=== PATIENT | female | born 1960 | race Caucasian/White ===

== ENCOUNTER → 2021-03-18 | Outpatient (CLI) | payer BC, OTHER ==
[2021-03-18 10:40] LABS: RED BLOOD COUNT 4.57 M/UL (4.00-5.10); WHITE BLOOD COUNT 4.2 K/UL (4.5-11.0)
[2021-03-18 10:54] LABS: BUN/CREATININE RATIO 12 (0-10)
== END ==
LOC: LAB 09:43
PROVIDERS: Nurse Practitioner
DX: I10 Essential (primary) hypertension (principal); K21.00 Gastro-esophageal reflux disease with esophagitis, without bleeding; E03.9 Hypothyroidism, unspecified; M54.5 Low back pain; N95.1 Menopausal and female climacteric states; E88.81 Metabolic syndrome and other insulin resistance; M13.0 Polyarthritis, unspecified; R76.0 Raised antibody titer; D51.9 Vitamin B12 deficiency anemia, unspecified; E55.9 Vitamin D deficiency, unspecified
CPT/HCPCS: 36415; 80053; 82607; 82746; 84439; 84443; 85027; 86140

== ENCOUNTER → 2021-08-26 | Outpatient (CLI) | payer BC ==
[2021-08-26 09:14] LABS: HEMOGLOBIN 14.3 gm/dl (12.3-15.3); RED BLOOD COUNT 4.49 M/UL (4.00-5.10); WHITE BLOOD COUNT 13.3 K/UL (4.5-11.0)
[2021-08-26 09:49] LABS: BUN/CREATININE RATIO 20 (0-10)
== END ==
LOC: LAB 08:53
PROVIDERS: Nurse Practitioner
DX: Z00.01 Encounter for general adult medical examination with abnormal findings (principal); Z13.220 Encounter for screening for lipoid disorders; Z13.31 Encounter for screening for depression; Z68.41 Body mass index [BMI] 40.0-44.9, adult; I10 Essential (primary) hypertension; R83.9 Unspecified abnormal finding in cerebrospinal fluid; R73.9 Hyperglycemia, unspecified; E03.9 Hypothyroidism, unspecified; E88.81 Metabolic syndrome and other insulin resistance; D51.9 Vitamin B12 deficiency anemia, unspecified; E55.9 Vitamin D deficiency, unspecified
CPT/HCPCS: 36415; 80053; 80061; 82607; 82746; 83036; 84439; 84443; 85027

== ENCOUNTER 2021-09-14 08:51 | Emergency (ER) | payer BC ==
[2021-09-14] MEDS ORDERED: Voltaren Gel 1 % TOP (10:39)
== END 2021-09-14 11:25 | disposition home or self-care (01) ==
LOC: ER1 08:51
DX: M25.562 Pain in left knee (principal); I10 Essential (primary) hypertension; J45.909 Unspecified asthma, uncomplicated; Z95.0 Presence of cardiac pacemaker; Z90.49 Acquired absence of other specified parts of digestive tract; Z90.710 Acquired absence of both cervix and uterus
CPT/HCPCS: 93971; 99283

== ENCOUNTER → 2021-12-29 | Outpatient (CLI) | payer BC ==
[~2021-12-29] MED LIST: Voltaren Gel 1 % TOP
== END ==
LOC: MAMO 07:31
DX: Z12.31 Encounter for screening mammogram for malignant neoplasm of breast (principal)
CPT/HCPCS: 77063; 77067

== ENCOUNTER → 2022-03-01 | Outpatient (CLI) | payer BC ==
[2022-03-01 12:39] LABS: HEMOGLOBIN 13.6 gm/dl (12.3-15.3); RED BLOOD COUNT 4.45 M/UL (4.00-5.10); WHITE BLOOD COUNT 5.6 K/UL (4.5-11.0)
[2022-03-01 13:16] LABS: BUN/CREATININE RATIO 11 (0-10)
== END ==
LOC: LAB 11:31
PROVIDERS: Nurse Practitioner Family
DX: R53.83 Other fatigue (principal)
CPT/HCPCS: 36415; 80053; 85025

== ENCOUNTER → 2022-03-10 | Outpatient (CLI) | payer BC ==
[2022-03-10 10:03] LABS: BUN/CREATININE RATIO 9 (0-10)
[2022-03-11 07:12] LABS: VITAMIN D, 25-HYDROXY 52.7 ng/mL (30.0-100.0)
[2022-03-11 08:14] LABS: THYROID PEROXIDASE (TPO) AB 11 IU/mL (0-34)
[2022-03-11 13:12] LABS: LYME TOTAL ANTIBODY EIA Negative (Negative)
== END ==
LOC: LAB 08:26
PROVIDERS: Nurse Practitioner
DX: E03.9 Hypothyroidism, unspecified (principal); E88.81 Metabolic syndrome and other insulin resistance; M13.0 Polyarthritis, unspecified; D51.9 Vitamin B12 deficiency anemia, unspecified; E55.9 Vitamin D deficiency, unspecified
CPT/HCPCS: 36415; 80053; 80061; 82607; 82746; 84439; 84443; 86376; 86617; 86618

== ENCOUNTER → 2022-06-09 | Outpatient (CLI) | payer BC ==
[2022-06-09 11:01] LABS: HEMOGLOBIN 13.6 gm/dl (12.3-15.3); RED BLOOD COUNT 4.62 M/UL (4.00-5.10)
[2022-06-09 12:10] LABS: BUN/CREATININE RATIO 10 (0-10)
[2022-06-10 09:13] LABS: VITAMIN D, 25-HYDROXY 34.1 ng/mL (30.0-100.0)
== END ==
LOC: LAB 10:09
PROVIDERS: Nurse Practitioner
DX: E03.9 Hypothyroidism, unspecified (principal); E88.81 Metabolic syndrome and other insulin resistance; E55.9 Vitamin D deficiency, unspecified; D51.9 Vitamin B12 deficiency anemia, unspecified; R73.9 Hyperglycemia, unspecified
CPT/HCPCS: 36415; 80053; 80061; 82607; 82746; 83036; 83735; 84439; 84443; 84481; 85027; 86141; 86376